=== PATIENT | female | born 1985 | race Caucasian/White ===

== ENCOUNTER → 2017-02-25 | Outpatient (REF) | payer OTHER ==
[~2017-02-25] MED LIST: NORCO ANEXSIA PO; SOLUMEDROL IV
== END ==
LOC: M SFHCLERA 11:22
PROVIDERS: ATTEND Nurse Practitioner Family
DX: R50.9 Fever, unspecified (principal)

== ENCOUNTER → 2017-04-15 | Outpatient (REF) | payer OTHER | LOC: M SFHCWAGY 14:34 | PROVIDERS: ATTEND Family Medicine | DX: Z12.4 Encounter for screening for malignant neoplasm of cervix (principal); Z11.3 Encounter for screening for infections with a predominantly sexual mode of transmission ==

== ENCOUNTER → 2017-05-03 | Outpatient (CLI) | payer OTHER, SELFPAY ==
--- NOTE | 2017-05-04 06:45 | REP ---
CERVICAL SPINE SERIES: CLINICAL: Cervicalgia. TECHNIQUE: AP, lateral, flexion/extension, bilateral oblique and open mouth views of the cervical spine. FINDINGS: Alignment is maintained. No acute fracture/compression injury or subluxation is appreciated. Oblique views demonstrate patent neural foramen. Open mouth view demonstrates normal C1-C2 articulation and odontoid process. Prevertebral and paravertebral soft tissues are unremarkable. IMPRESSION: Normal age appropriate cervical spine radiograph series. Signed by Darrel Calzada MD 05/08/2017 11:54 P
--- NOTE | 2017-05-04 06:57 | REP ---
LUMBOSACRAL SPINE SERIES: CLINICAL HISTORY: Low back pain. TECHNIQUE: AP, lateral, bilateral oblique and coned down views of the lumbosacral spine. FINDINGS: Alignment and lordosis maintained. Vertebral bodies intact. No acute fracture/compression injury or subluxation. No significant degenerative changes are appreciated. IMPRESSION: Normal age appropriate lumbosacral spine radiograph series. Signed by Darrel Calzada MD 05/08/2017 11:54 P
== END ==
LOC: M LRY 10:25
PROVIDERS: ATTEND Physician Assistant
DX: M54.2 Cervicalgia (principal); M54.5 Low back pain

== ENCOUNTER → 2017-05-03 | Outpatient (REF) | payer OTHER, SELFPAY ==
[2017-05-03 18:23] LABS: ALBUMIN 3.8 GM/DL (3.2-5.2); ALBUMIN/GLOBULIN RATIO 1.31 (1.00-1.93); ALKALINE PHOSPHATASE 89 U/L (45-117); ALT/SGPT 16 U/L (12-78); ANION GAP 7 MEQ/L (8-16); AST/SGOT 11 U/L (7-37); BILIRUBIN,TOTAL 0.3 MG/DL (0.2-1.0); BLOOD UREA NITROGEN 8 MG/DL (7-18); CALCIUM LEVEL 8.7 MG/DL (8.5-10.1); CARBON DIOXIDE LEVEL 30 MEQ/L (21-32); CHLORIDE LEVEL 105 MEQ/L (98-107); CREATININE FOR GFR 0.61 MG/DL (0.55-1.02); GLOMERULAR FILTRATION RATE > 60.0 (>60); GLUCOSE, FASTING 87 MG/DL (70-105); POTASSIUM SERUM 4.4 MEQ/L (3.5-5.1); SODIUM LEVEL 142 MEQ/L (136-145); TOTAL PROTEIN 6.7 GM/DL (6.4-8.2)
[2017-05-03 19:00] LABS: MEAN CORPUSCULAR HEMOGLOBIN 29.3 pg (27.0-33.0); MEAN CORPUSCULAR HGB CONC 32.2 g/dl (32.0-36.5); MEAN CORPUSCULAR VOLUME 91.1 fl (80.0-96.0); PLATELET COUNT, AUTOMATED 221 10^3/uL (150-450); RED CELL DISTRIBUTION WIDTH 12.3 % (11.5-14.5); WHITE BLOOD COUNT 6.4 10^3/uL (4.0-10.0)
== END ==
LOC: M SFHCLERA 10:17
PROVIDERS: ATTEND Physician Assistant
DX: L30.1 Dyshidrosis [pompholyx] (principal); G43.709 Chronic migraine without aura, not intractable, without status migrainosus

== ENCOUNTER → 2017-12-21 | Outpatient (REF) | payer OTHER | LOC: M LAB REF 14:47 | DX: R30.0 Dysuria (principal) | CPT/HCPCS: 87086 ==

== ENCOUNTER 2017-12-25 08:59 | Emergency (ER) | payer SELFPAY, OTHER ==
[2017-12-25 09:48] LABS: BASO % 0.2 % (0.0-1.0); EOS % 0.3 % (0.0-3.0); HEMATOCRIT 44.5 % (36.0-47.0); HEMOGLOBIN 14.8 g/dl (12.0-15.5); IMMATURE GRANULOCYTE % 0.3 % (0-3.0); LYMPH % 14.7 % (24.0-44.0); MEAN CORPUSCULAR HEMOGLOBIN 29.4 pg (27.0-33.0); MEAN CORPUSCULAR HGB CONC 33.3 g/dl (32.0-36.5); MEAN CORPUSCULAR VOLUME 88.5 fl (80.0-96.0); MONO # 0.6 10^3/uL (0.0-0.8); MONO % 9.6 % (0.0-5.0); NEUTROPHILS # 4.9 10^3/uL (1.8-7.7); NEUTROPHILS % 74.9 % (36.0-66.0); PLATELET COUNT, AUTOMATED 222 10^3/uL (150-450); RED BLOOD COUNT 5.03 10^6/uL (4.00-5.40); RED CELL DISTRIBUTION WIDTH 13.1 % (11.5-14.5); WHITE BLOOD COUNT 6.6 10^3/uL (4.0-10.0)
[2017-12-25 09:50] LABS: BEDSIDE GLUCOSE 91 MG/DL (70-105)
[2017-12-25] MEDS: NS 1,000 ML IV (09:53)
[2017-12-25] MEDS: KETOROLAC 30 MG/ML VIAL (J1885) IV (09:54)
[2017-12-25] MEDS: ONDANSETRON 4MG/2ML VIAL (J2405) IV (09:55)
[2017-12-25] MEDS: GASTROGRAFIN SOLUTION 30ML PO ×2 (10:10→10:40)
[2017-12-25 10:13] LABS: LACTIC ACID SEPSIS PROTOCOL 1.2 MMOL/L (0.4-2.0)
[2017-12-25 10:14] LABS: ALBUMIN 4.2 GM/DL (3.2-5.2); ALBUMIN/GLOBULIN RATIO 1.08 (1.00-1.93); ALKALINE PHOSPHATASE 105 U/L (45-117); ALT/SGPT 19 U/L (12-78); AMYLASE 74 U/L (25-115); ANION GAP 8 MEQ/L (8-16); AST/SGOT 16 U/L (7-37); BILIRUBIN,TOTAL 0.5 MG/DL (0.2-1.0); BLOOD UREA NITROGEN 8 MG/DL (7-18); CARBON DIOXIDE LEVEL 26 MEQ/L (21-32); CHLORIDE LEVEL 105 MEQ/L (98-107); CREATININE FOR GFR 1.12 MG/DL (0.55-1.30); GLOMERULAR FILTRATION RATE > 60.0 (>60); GLUCOSE, FASTING 101 MG/DL (70-100); LIPASE 276 U/L (73-393); POTASSIUM SERUM 3.6 MEQ/L (3.5-5.1); SODIUM LEVEL 139 MEQ/L (136-145); TOTAL PROTEIN 8.1 GM/DL (6.4-8.2)
[2017-12-25 10:27] LABS: APPEARANCE, URINE CLEAR (CLEAR); BACTERIA, URINE AUTO NEGATIVE (NEGATIVE); BILIRUBIN, URINE AUTO NEGATIVE (NEGATIVE); BLOOD, URINE BLOOD NEGATIVE (NEGATIVE); COLOR, URINE YELLOW (YELLOW); GLUCOSE, URINE (UA) AUTO NEGATIVE (NEGATIVE); KETONE, URINE AUTO NEGATIVE (NEGATIVE); LEUKOCYTE ESTERASE, URINE AUTO NEGATIVE (NEGATIVE); MUCUS, URINE SMALL (NEGATIVE); NITRITE, URINE AUTO NEGATIVE (NEGATIVE); PROTEIN, URINE AUTO NEGATIVE (NEGATIVE); RBC, URINE AUTO 0 /HPF (0-3); SPECIFIC GRAVITY URINE AUTO 1.011 (1.002-1.035); SQUAMOUS EPITHELIAL CELL UR AU 0 /HPF (0-6); WBC, URINE AUTO 0 /HPF (0-3)
[2017-12-25 10:54] LABS: ESTIMATED AVERAGE GLUCOSE 97 MG/DL (60-110)
== END 2017-12-25 13:05 | disposition home or self-care (01) ==
LOC: M ED 08:59
DX: E86.0 Dehydration (principal); R10.9 Unspecified abdominal pain; N85.2 Hypertrophy of uterus; J45.909 Unspecified asthma, uncomplicated; Z87.440 Personal history of urinary (tract) infections; Z87.891 Personal history of nicotine dependence; Z79.2 Long term (current) use of antibiotics
CPT/HCPCS: Q9963

== ENCOUNTER → 2017-12-28 | Outpatient (REF) | payer OTHER ==
[2017-12-28 20:21] LABS: THYROID STIMULATING HORMONE 0.756 uIU/ML (0.358-3.740)
[2017-12-29 11:10] LABS: CONTROL LINE MONO INT CTR LINE PRESENT; MONO SCRN NEGATIVE (NEGATIVE)
== END ==
LOC: M SFHCLERA 15:29
DX: R30.0 Dysuria (principal); R53.83 Other fatigue

== ENCOUNTER → 2018-01-19 | Outpatient (REF) | payer OTHER ==
[2018-01-19 16:24] LABS: BASO % 0.1 % (0.0-1.0); EOS % 0.1 % (0.0-3.0); HEMATOCRIT 44.9 % (36.0-47.0); IMMATURE GRANULOCYTE % 0.3 % (0-3.0); LYMPH # 1.4 10^3/uL (1.5-4.5); LYMPH % 18.7 % (24.0-44.0); MEAN CORPUSCULAR HEMOGLOBIN 29.5 pg (27.0-33.0); MEAN CORPUSCULAR HGB CONC 33.4 g/dl (32.0-36.5); MEAN CORPUSCULAR VOLUME 88.4 fl (80.0-96.0); MONO # 0.5 10^3/uL (0.0-0.8); MONO % 6.9 % (0.0-5.0); NEUTROPHILS # 5.7 10^3/uL (1.8-7.7); NEUTROPHILS % 73.9 % (36.0-66.0); PLATELET COUNT, AUTOMATED 212 10^3/uL (150-450); RED BLOOD COUNT 5.08 10^6/uL (4.00-5.40); RED CELL DISTRIBUTION WIDTH 12.8 % (11.5-14.5); WHITE BLOOD COUNT 7.7 10^3/uL (4.0-10.0)
[2018-01-19 17:18] LABS: ALBUMIN 4.2 GM/DL (3.2-5.2); ALKALINE PHOSPHATASE 101 U/L (45-117); ALT/SGPT 15 U/L (12-78); ANION GAP 10 MEQ/L (8-16); AST/SGOT 10 U/L (7-37); BILIRUBIN,TOTAL 0.7 MG/DL (0.2-1.0); BLOOD UREA NITROGEN 10 MG/DL (7-18); CALCIUM LEVEL 9.2 MG/DL (8.5-10.1); CARBON DIOXIDE LEVEL 26 MEQ/L (21-32); CHLORIDE LEVEL 105 MEQ/L (98-107); CREATININE FOR GFR 0.76 MG/DL (0.55-1.30); GLOMERULAR FILTRATION RATE > 60.0 (>60); GLUCOSE, FASTING 87 MG/DL (70-100); POTASSIUM SERUM 4.2 MEQ/L (3.5-5.1); SODIUM LEVEL 141 MEQ/L (136-145); TOTAL PROTEIN 7.7 GM/DL (6.4-8.2)
== END ==
LOC: M SFHCLERA 12:23
DX: R23.2 Flushing (principal)

== ENCOUNTER → 2018-03-29 | Outpatient (REF) | payer OTHER | LOC: M SFHCLERA 13:20 | DX: J02.9 Acute pharyngitis, unspecified (principal) ==

== ENCOUNTER 2018-06-09 10:16 | Emergency (ER) | payer OTHER ==
[~2018-06-09] VITALS: Ht 160 cm; Wt 72.7 kg
[~2018-06-09 10:16] MED LIST changes: +BACT800T5 PO
[2018-06-09 10:17] VITALS: BP 143/79
[2018-06-09] MEDS ORDERED: CEFD1CAP8 PO (10:30)
[2018-06-09] MEDS ORDERED: OCUF0.25 AU (10:30)
[2018-06-09] MEDS ORDERED: FLON1SPR NARES (10:43)
[2018-06-09] MEDS ORDERED: PRED20TA PO (10:43)
[2018-06-09] MEDS ORDERED: CIPRODEX OTIC (10:44)
== END 2018-06-09 10:52 | disposition home or self-care (01) ==
LOC: M ED 10:16
DX: H66.93 Otitis media, unspecified, bilateral (principal); J01.90 Acute sinusitis, unspecified; H72.02 Central perforation of tympanic membrane, left ear; J45.909 Unspecified asthma, uncomplicated

== ENCOUNTER 2021-06-30 15:08 | Emergency (ER) | payer OTHER, SELFPAY ==
[~2021-06-30] VITALS: Ht 160 cm; Wt 76.5 kg
[~2021-06-30 15:08] MED LIST changes: +CEFD300C41 PO; +CIPR7.5D5 OTIC; +FLON1SPR NARES; +OCUF0.25 AU; +PRED20TA PO
[2021-06-30] MEDS ORDERED: ONDANSETRON 4MG/2ML VIAL IV ONE (18:55)
[2021-06-30 19:37] LABS: BASO % 0.2 % (0.0-1.0); EOS % 0.1 % (0.0-3.0); HEMATOCRIT 43.9 % (36.0-47.0); HEMOGLOBIN 14.5 g/dl (12.0-15.5); LYMPH # 1.5 10^3/uL (1.5-5.0); LYMPH % 14.4 % (24.0-44.0); MEAN CORPUSCULAR HEMOGLOBIN 28.3 pg (27.0-33.0); MEAN CORPUSCULAR VOLUME 85.7 fl (80.0-96.0); MONO # 0.5 10^3/uL (0.0-0.8); MONO % 4.9 % (2.0-8.0); NEUTROPHILS # 8.1 10^3/uL (1.5-8.5); NEUTROPHILS % 80.1 % (36.0-66.0); PLATELET COUNT, AUTOMATED 236 10^3/uL (150-450); RED BLOOD COUNT 5.12 10^6/uL (4.00-5.40); WHITE BLOOD COUNT 10.1 10^3/uL (4.0-10.0)
[2021-06-30 19:58] LABS: ALBUMIN 4.4 GM/DL (3.2-5.2); ALT/SGPT 20 U/L (12-78); BILIRUBIN,DIRECT 0.2 MG/DL (0.0-0.2); BILIRUBIN,TOTAL 0.5 MG/DL (0.2-1.0); BLOOD UREA NITROGEN 10 MG/DL (7-18); CALCIUM LEVEL 9.7 MG/DL (8.5-10.1); CARBON DIOXIDE LEVEL 27 MEQ/L (21-32); CHLORIDE LEVEL 106 MEQ/L (98-107); CREATININE FOR GFR 0.77 MG/DL (0.55-1.30); GLOMERULAR FILTRATION RATE > 60.0 (>60); GLUCOSE, FASTING 105 MG/DL (70-100); POTASSIUM SERUM 3.6 MEQ/L (3.5-5.1); SODIUM LEVEL 140 MEQ/L (136-145)
[2021-06-30 20:05] LABS: FREE T4 1.36 NG/DL (0.76-1.46); THYROID STIMULATING HORMONE 0.939 uIU/ML (0.358-3.740)
[2021-06-30] MEDS ORDERED: KETOROLAC 30 MG/ML 1ML VIAL IV ONE (20:30)
[2021-06-30] MEDS ORDERED: NS 1,000 ML IV ONE (20:30)
[2021-06-30] MEDS ORDERED: methylPREDNISolone 125MG 2ML VIAL IV ONE (20:35)
[2021-06-30 22:41] VITALS: BP 123/71
[2021-06-30] MEDS ORDERED: CYCL5TAB PO (22:41)
[2021-06-30] MEDS ORDERED: ONDA4TAB6 PO (22:41)
== END 2021-06-30 22:53 | disposition home or self-care (01) ==
LOC: M ED 15:08
DX: U07.1 COVID-19 (principal); M62.830 Muscle spasm of back; R51.9 Headache, unspecified; F12.10 Cannabis abuse, uncomplicated
CPT/HCPCS: 70450; 71045; 80053; 82248; 82550; 84439; 84443; 85025; 85379; 87804; 93005; 96361; 96374; 96375; 99284; J1885; J2405; J2930

== ENCOUNTER → 2022-03-04 | Outpatient (CLI) | payer OTHER ==
[~2022-03-04] MED LIST changes: +CYCL5TAB PO; +ONDA4TAB6 PO
[2022-03-04 18:42] LABS: BASO % 0.5 % (0.0-1.0); EOS % 0.4 % (0.0-3.0); HEMATOCRIT 42.3 % (36.0-47.0); HEMOGLOBIN 13.2 g/dl (12.0-15.5); LYMPH % 23.7 % (24.0-44.0); MEAN CORPUSCULAR HEMOGLOBIN 27.9 pg (27.0-33.0); MEAN CORPUSCULAR HGB CONC 31.2 g/dl (32.0-36.5); MEAN CORPUSCULAR VOLUME 89.4 fl (80.0-96.0); MONO # 0.7 10^3/uL (0.0-0.8); MONO % 8.1 % (2.0-8.0); NEUTROPHILS # 5.7 10^3/uL (1.5-8.5); NEUTROPHILS % 66.9 % (36.0-66.0); PLATELET COUNT, AUTOMATED 233 10^3/uL (150-450); RED BLOOD COUNT 4.73 10^6/uL (4.00-5.40); WHITE BLOOD COUNT 8.4 10^3/uL (4.0-10.0)
[2022-03-04 18:45] LABS: APPEARANCE, URINE MANUAL HAZY (CLEAR); COLOR, URINE MANUAL YELLOW (YELLOW)
[2022-03-04 18:46] LABS: BILIRUBIN, URINE MANUAL NEGATIVE (NEGATIVE); BLOOD URINE MANUAL NEGATIVE (NEGATIVE); GLUCOSE, URINE (UA) MANUAL NEGATIVE (NEGATIVE); KETONE, URINE MANUAL 1+ mg/dL (NEGATIVE); LEUKOCYTE ESTERASE, URINE MAN TRACE (NEGATIVE); NITRITE, URINE MANUAL NEGATIVE (NEGATIVE); PROTEIN, URINE MANUAL NEGATIVE (NEGATIVE); UROBILINOGEN, URINE MANUAL NORMAL (NORMAL)
[2022-03-04 19:10] LABS: BACTERIA, URINE LARGE AMOUNT; HYALINE CAST, URINE NONE SEEN /lpf (0-1); MUCUS, URINE LARGE AMOUNT (NEGATIVE); RBC, URINE NONE SEEN /hpf (0-3); SQUAMOUS EPITHELIAL CELL URINE LARGE AMOUNT /hpf (SMALL AMT)
[2022-03-04 19:14] LABS: ALBUMIN 3.9 GM/DL (3.2-5.2); ALT/SGPT 15 U/L (12-78); BILIRUBIN,TOTAL 0.4 MG/DL (0.2-1.0); BLOOD UREA NITROGEN 11 MG/DL (7-18); CARBON DIOXIDE LEVEL 29 MEQ/L (21-32); CHLORIDE LEVEL 106 MEQ/L (98-107); CREATININE FOR GFR 0.66 MG/DL (0.55-1.30); GLOMERULAR FILTRATION RATE > 60.0 (>60); GLUCOSE, FASTING 103 MG/DL (70-100); POTASSIUM SERUM 4.4 MEQ/L (3.5-5.1); SODIUM LEVEL 138 MEQ/L (136-145); THYROID STIMULATING HORMONE 0.932 uIU/ML (0.358-3.740)
[2022-03-04 19:20] LABS: ERYTHROCYTE SEDIMENTATION RATE 2 mm/hr (0-20)
== END ==
LOC: M RAD 17:11
PROVIDERS: ATTEND Family Medicine
DX: R59.0 Localized enlarged lymph nodes (principal); R63.4 Abnormal weight loss; M41.85 Other forms of scoliosis, thoracolumbar region

== ENCOUNTER → 2022-03-23 | Outpatient (CLI) | payer OTHER | LOC: M WHC 07:16 | PROVIDERS: ATTEND Family Medicine | DX: R59.0 Localized enlarged lymph nodes (principal); E04.1 Nontoxic single thyroid nodule ==

== ENCOUNTER → 2022-04-07 | Outpatient (CLI) | payer OTHER ==
[~2022-04-07] MED LIST changes: +LIDOCAINE 1% MDV 20ML VIAL As Ordered ONE
[2022-04-07 14:32] VITALS: BP 140/86
== END ==
LOC: M IRPRO 13:25
PROVIDERS: ATTEND Family Medicine
DX: E04.1 Nontoxic single thyroid nodule (principal)

== ENCOUNTER → 2023-04-20 | Outpatient (CLI) | payer OTHER ==
[~2023-04-20] MED LIST changes: -CEFD300C41 PO; +CEFD300C42 PO; -LIDOCAINE 1% MDV 20ML VIAL As Ordered ONE
== END ==
LOC: M RAD 12:45
PROVIDERS: ATTEND Family Medicine
DX: E04.1 Nontoxic single thyroid nodule (principal)

== ENCOUNTER → 2024-09-26 | Outpatient (CLI) | payer OTHER ==
[~2024-09-26] MED LIST changes: +CEFD1CAP9 PO; -CEFD300C42 PO; -CYCL5TAB PO; +CYCL5TAB4 PO; +ONDA-282 PO; -ONDA4TAB6 PO
[2024-09-26 18:18] LABS: ALBUMIN 3.7 G/DL (3.2-5.2); ALKALINE PHOSPHATASE 86 U/L (35-104); ALT/SGPT 11 U/L (7.0-40); AST/SGOT 13 U/L (<34); BILIRUBIN,TOTAL 0.4 MG/DL (0.3-1.2); BLOOD UREA NITROGEN 8 MG/DL (9-23); CALCIUM LEVEL 9.1 MG/DL (8.5-10.1); CARBON DIOXIDE LEVEL 29 MMOL/L (20-31); CHLORIDE LEVEL 107 MMOL/L (98-107); CHOLESTEROL LEVEL 177 MG/DL (<200); CHOLESTEROL RISK RATIO 2.41 (<5); CREATININE FOR GFR 0.69 MG/DL (0.55-1.30); GLOMERULAR FILTRATION RATE > 90.0 (>60); GLUCOSE, FASTING 119 MG/DL (60-100); HDL CHOLESTEROL 73.2 MG/DL (>40); LDL CHOLESTEROL 92.8 MG/DL (<100); NON-HDL-C 103.8 MG/DL; POTASSIUM SERUM 3.8 MMOL/L (3.5-5.1); SODIUM LEVEL 142 MMOL/L (136-145); TOTAL PROTEIN 6.4 G/DL (5.7-8.2); TRIGLYCERIDES LEVEL 55 MG/DL (<150)
[2024-09-26 18:20] LABS: FREE T4 1.17 NG/DL (0.89-1.76)
[2024-09-26 18:22] LABS: BASO % 0.3 % (0.0-1.0); EOS % 0.1 % (0.0-3.0); HEMOGLOBIN 12.5 g/dl (12.0-15.5); LYMPH # 1.5 10^3/uL (1.5-5.0); LYMPH % 20.5 % (24.0-44.0); MEAN CORPUSCULAR HEMOGLOBIN 28.2 pg (27.0-33.0); MEAN CORPUSCULAR HGB CONC 31.3 g/dl (32.0-36.5); MEAN CORPUSCULAR VOLUME 90.1 fl (80.0-96.0); MONO # 0.5 10^3/uL (0.0-0.8); MONO % 6.7 % (2.0-8.0); NEUTROPHILS # 5.4 10^3/uL (1.5-8.5); NEUTROPHILS % 72.3 % (36.0-66.0); PLATELET COUNT, AUTOMATED 230 10^3/uL (150-450); RED BLOOD COUNT 4.44 10^6/uL (4.00-5.40); WHITE BLOOD COUNT 7.4 10^3/uL (4.0-10.0)
[2024-09-26 19:16] LABS: HEMOGLOBIN A1c 4.9 % (4.0-6.0)
== END ==
LOC: M WUC 13:54
PROVIDERS: ATTEND Family Medicine
DX: Z00.00 Encounter for general adult medical examination without abnormal findings (principal); E04.1 Nontoxic single thyroid nodule